=== PATIENT | male | born 1960 | race Caucasian/White ===

== ENCOUNTER 2017-07-21 19:54 | Emergency (ER) | payer OTHER ==
[~2017-07-21] VITALS: Ht 185.4 cm; Wt 71.8 kg
[2017-07-21 19:56] VITALS: BP 136/84
[2017-07-21] MEDS ORDERED: BACITRACIN ZINC OINT 500U/GM, 0.9 GM ONE (20:24)
[2017-07-21] MEDS ORDERED: BACITRACIN/POLYMIXIN B SULFATE OINT 14 GM TP ONE (20:30)
== END 2017-07-21 20:31 | disposition home or self-care (01) ==
LOC: ED 20:10
DX: S00.03XA Contusion of scalp, initial encounter (principal); W22.8XXA Striking against or struck by other objects, initial encounter; Y93.89 Activity, other specified; Y92.098 Other place in other non-institutional residence as the place of occurrence of the external cause; Y99.8 Other external cause status
CPT/HCPCS: 99283